=== PATIENT | male | born 1930 | race Caucasian/White ===

== ENCOUNTER 2017-07-06 15:17 | Inpatient (IN) | payer MEDICARE, OTHER ==
[2017-07-06 15:56] LABS: CHLORIDE,CL 104 mEq/L (98-106); SODIUM,NA 138 mEq/L (136-145)
[2017-07-06] MEDS ORDERED: Sodium Chloride 0.9% 10 ML Syringe FLUSH PRN (19:27)
[2017-07-06] MEDS ORDERED: Pantoprazole 40 MG Vial IVPUSH ONE (19:27)
[2017-07-06] MEDS ORDERED: Acetaminophen 325 MG Tab PO PRN (19:27)
[2017-07-06] MEDS ORDERED: Temazepam 15 MG Cap PO PRN (19:27)
[2017-07-06] MEDS: Sodium Chloride 0.9% 1,000 ML IV SCH (20:08)
[2017-07-06] MEDS: Levofloxacin/Dextrose 5%-Water 500 MG in Premix Bag 1 BAG IV SCH (20:09)
[2017-07-06] MEDS: Enoxaparin 40 MG/0.4 ML Syringe SUBCUT SCH (20:16)
[2017-07-06] MEDS: valACYclovir 500 MG Tab PO SCH (20:16)
[2017-07-07] MEDS: Gabapentin 100 MG Cap PO SCH (07:32)
[2017-07-07] MEDS: Aspirin 81 MG Tab.EC PO SCH (07:32)
[2017-07-07] MEDS: valACYclovir 500 MG Tab PO SCH ×2 (07:41→19:24)
[2017-07-07] MEDS: Sodium Chloride 0.9% 1,000 ML IV SCH ×2 (10:33→22:09)
--- NOTE | 2017-07-07 12:22 | PCM.PN ---
- General Info Date of Service: 07/07/17 Admission Dx/Problem (Free Text): Weakness UTI Functional Status: Reports: Pain Controlled, Tolerating Diet. Denies: Ambulating - Review of Systems General: Reports: Weakness, Fatigue, Malaise. Denies: Fever HEENT: Reports: No Symptoms Pulmonary: Denies: Shortness of Breath, Cough, Sputum Cardiovascular: Denies: Chest Pain, Edema, Lightheadedness Gastrointestinal: Denies: Abdominal Pain, Nausea, Vomiting Genitourinary: Reports: Frequency Musculoskeletal: Reports: No Symptoms Skin: Reports: No Symptoms Neurological: Reports: Weakness - Patient Data Vitals - Most Recent: Last Vital Signs Temp 97.2 F 07/07/17 04:00 Pulse 69 07/07/17 04:00 Resp 20 07/07/17 04:00 BP 139/59 L 07/07/17 04:00 Pulse Ox 96 07/07/17 04:00 Weight - Most Recent: 192 lb 1.6 oz I&O - Last 24 Hours: Intake & Output 07/06/17 07/07/17 07/07/17 22:59 06:59 14:59 Intake Total 1100 Output Total 400 800 250 Balance -400 300 -250 Lab Results Last 24 Hours: Laboratory Results - last 24 hr 07/06/17 07/06/17 07/06/17 Range/Units 15:24 15:25 15:25 WBC 8.4 (5.0-10.0) 10^3/uL RBC 4.49 L (4.50-6.00) 10^6/uL Hgb 13.6 L (14.0-18.0) g/dL Hct 41.2 (40.0-54.0) % MCV 91.8 (82.0-94.0) fL MCH 30.3 (27.0-32.0) pg MCHC 33.0 (33.0-38.0) g/dL RDW Coeff of Elvie 13.5 (11.0-15.0) % Plt Count 163 (150-400) 10^3/uL Neut % (Auto) 50.7 (35-85) % Lymph % (Auto) 26.6 (10-55) % [place] % (Auto) 15.7 (0-16) % Eos % (Auto) 6.4 H (0-5) % Baso % (Auto) 0.6 (0-3) % Neut # (Auto) 4.28 (1.80-7.00) 10^3/uL Lymph # (Auto) 2.24 (1.00-4.80) 10^3/uL [place] # (Auto) 1.32 H (0.00-0.80) 10^3/uL Eos # (Auto) 0.54 H (0.00-0.45) 10^3/uL Baso # (Auto) 0.05 10^3/uL Add Manual Diff Neutrophils % (Manual) (35-85) % Lymphocytes % (Manual) (21-55) % Monocytes % (Manual) (2-12) % Eosinophils % (Manual) (0-5) % Absolute Neutrophils (1.80-7.00) 10^3/uL Lymphocytes # (Manual) (1.00-4.80) 10^3/uL Monocytes # (Manual) (0.00-0.80) 10^3/uL Eosinophils # (Manual) (0.00-0.45) 10^3/uL Sodium 138 (136-145) mEq/L Potassium 4.2 (3.5-5.0) mEq/L Chloride 104 (98-106) mEq/L Carbon Dioxide 26 (21-32) mmol/L BUN 13 (7-18) mg/dL Creatinine 0.8 (0.7-1.3) mg/dL Est Cr Clr Drug Dosing TNP Estimated GFR (MDRD) > 60 (>=60) mL/min Glucose 114 H (75-99) mg/dL Calcium 8.2 L (8.4-10.1) mg/dL Total Bilirubin 0.4 (0.0-1.0) mg/dL AST 112 H (15-37) U/L ALT 11 L (12-78) U/L Alkaline Phosphatase 526 H (46-116) U/L C-Reactive Protein 4.0 H (0.2-0.8) mg/dL Total Protein 6.2 L (6.4-8.2) g/dL Albumin 2.5 L (3.4-5.0) g/dL Amylase 21 L (25-115) U/L Free T4 1.1 (0.8-1.6) ng/dL TSH, Ultra Sensitive 6.76 H (0.36-5.60) uIU/mL Urine Color (YELLOW) Urine Appearance (CLEAR) Urine pH (4.5-8.0) Ur Specific [place] (1.003-1.020) Urine Protein (NEGATIVE) mg/dL Urine Glucose (UA) (NEGATIVE) mg/dL Urine Ketones (NEGATIVE) mg/dL Urine Occult Blood (NEGATIVE) Urine Nitrite (NEGATIVE) Urine Bilirubin (NEGATIVE) Urine Urobilinogen (0.2-1.0) EU/dL Ur Leukocyte Esterase (NEGATIVE) Urine RBC (0-5) /HPF Urine WBC (0-5) /HPF Urine WBC Clumps (NOT SEEN) /HPF Ur Epithelial Cells (NOT SEEN) /HPF Urine Bacteria (NOT SEEN) /HPF 07/06/17 07/07/17 07/07/17 Range/Units 15:25 07:15 07:15 WBC 7.5 (5.0-10.0) 10^3/uL RBC 4.15 L (4.50-6.00) 10^6/uL Hgb 12.7 L (14.0-18.0) g/dL Hct 38.3 L (40.0-54.0) % MCV 92.3 (82.0-94.0) fL MCH 30.6 (27.0-32.0) pg MCHC 33.2 (33.0-38.0) g/dL RDW Coeff of Elvie 13.4 (11.0-15.0) % Plt Count 142 L (150-400) 10^3/uL Neut % (Auto) (35-85) % Lymph % (Auto) (10-55) % [place] % (Auto) (0-16) % Eos % (Auto) (0-5) % Baso % (Auto) (0-3) % Neut # (Auto) (1.80-7.00) 10^3/uL Lymph # (Auto) (1.00-4.80) 10^3/uL [place] # (Auto) (0.00-0.80) 10^3/uL Eos # (Auto) (0.00-0.45) 10^3/uL Baso # (Auto) 10^3/uL Add Manual Diff Yes Neutrophils % (Manual) 57 (35-85) % Lymphocytes % (Manual) 25 (21-55) % Monocytes % (Manual) 14 H (2-12) % Eosinophils % (Manual) 4 (0-5) % Absolute Neutrophils 4.28 (1.80-7.00) 10^3/uL Lymphocytes # (Manual) 1.88 (1.00-4.80) 10^3/uL Monocytes # (Manual) 1.05 H (0.00-0.80) 10^3/uL Eosinophils # (Manual) 0.30 (0.00-0.45) 10^3/uL Sodium (136-145) mEq/L Potassium (3.5-5.0) mEq/L Chloride (98-106) mEq/L Carbon Dioxide (21-32) mmol/L BUN (7-18) mg/dL Creatinine (0.7-1.3) mg/dL Est Cr Clr Drug Dosing Estimated GFR (MDRD) (>=60) mL/min Glucose (75-99) mg/dL Calcium (8.4-10.1) mg/dL Total Bilirubin (0.0-1.0) mg/dL AST (15-37) U/L ALT (12-78) U/L Alkaline Phosphatase (46-116) U/L C-Reactive Protein 7.1 H (0.2-0.8) mg/dL Total Protein (6.4-8.2) g/dL Albumin (3.4-5.0) g/dL Amylase (25-115) U/L Free T4 (0.8-1.6) ng/dL TSH, Ultra Sensitive (0.36-5.60) uIU/mL Urine Color Yellow (YELLOW) Urine Appearance Cloudy (CLEAR) Urine pH 6.0 (4.5-8.0) Ur Specific [place] 1.015 (1.003-1.020) Urine Protein 30 H (NEGATIVE) mg/dL Urine Glucose (UA) Negative (NEGATIVE) mg/dL Urine Ketones Negative (NEGATIVE) mg/dL Urine Occult Blood Moderate H (NEGATIVE) Urine Nitrite Negative (NEGATIVE) Urine Bilirubin Negative (NEGATIVE) Urine Urobilinogen 0.2 (0.2-1.0) EU/dL Ur Leukocyte Esterase Large H (NEGATIVE) Urine RBC 5-10 H (0-5) /HPF Urine WBC >100 H (0-5) /HPF Urine WBC Clumps Few H (NOT SEEN) /HPF Ur Epithelial Cells Few H (NOT SEEN) /HPF Urine Bacteria Moderate H (NOT SEEN) /HPF Alexis Results Last 24 Hours: Microbiology 07/06/17 16:25 Urine Culture - Preliminary Urine, Voided Gram Negative Rods Med Orders - Current: Current Medications Acetaminophen (Tylenol) 650 mg PO Q4H PRN PRN Reason: Pain (Mild 1-3)/fever Aspirin (Halfprin) 81 mg PO DAILY [facility] Last Admin: 07/07/17 07:32 Dose: 81 mg Enoxaparin Sodium (Lovenox) 40 mg SUBCUT Q24H [facility] Last Admin: 07/06/17 20:16 Dose: 40 mg Gabapentin (Neurontin) 100 mg PO DAILY [facility] Last Admin: 07/07/17 07:32 Dose: 100 mg Levofloxacin/Dextrose 500 mg/ (Premix) 100 mls @ 100 mls/hr IV Q24H [facility] Last Admin: 07/06/17 20:09 Dose: 100 mls/hr Sodium Chloride (Normal Saline) 1,000 mls @ 100 mls/hr IV ASDIRECTED [facility] Last Admin: 07/07/17 10:33 Dose: 100 mls/hr Non-Formulary Medication (Mometasone Furoate [Asmanex]) 1 puff INH BID [facility] Sodium Chloride (Saline Flush) 10 ml FLUSH ASDIRECTED PRN PRN Reason: Keep Vein Open Temazepam (Restoril) 15 mg PO BEDTIME PRN PRN Reason: Sleep Valacyclovir HCl (Valtrex) 1,000 mg PO BID [facility] Last Admin: 07/07/17 07:41 Dose: 1,000 mg Discontinued Medications Pantoprazole Sodium (Protonix Iv) 40 mg IVPUSH ONETIME ONE Stop: 07/06/17 19:28 Last Admin: 07/06/17 20:07 Dose: 40 mg - Exam General: Alert, Oriented HEENT: Mucous Membr. Moist/[place] Neck: Supple Lungs: Clear to Auscultation, Normal Respiratory Effort Cardiovascular: Regular Rate, Regular Rhythm GI/Abdominal Exam: Normal Bowel Sounds, Soft, Non-Tender Extremities: Normal Inspection, No Pedal Edema Skin: Warm, Dry Neurological: No New Focal Deficit - Problem List & Annotations (1) Acute UTI SNOMED Code(s): 954380128 Code(s): N39.0 - URINARY TRACT INFECTION, SITE NOT SPECIFIED Status: Acute Priority: High Current Visit: Yes (2) Weakness SNOMED Code(s): 44840856 Code(s): R53.1 - WEAKNESS Status: Acute Priority: High Current Visit: Yes - Problem List Review Problem List Initiated/Reviewed/Updated: Yes - My Orders Last 24 Hours: My Active Orders 07/08/17 05:11 BASIC METABOLIC PANEL,BMP [CHEM] AM C-REACTIVE PROTEIN [CHEM] AM CBC WITH AUTO DIFF [HEME] AM - Assessment Assessment:: Weakness UTI - Plan Plan:: Patient continues to complain of extreme weakness and fatigue. States has minimal activity intolerance. Has been on multiple meds for his prostate CA over the years, thought possibly his most recent med was causing the weakness but he states has been off of that now for 2 weeks and hasn't seen improvement. Does note frequency with urination and is positive for UTI so may also be contributing to his weakness. He denies any shortness of breath or chest pain. Does have decreased appetite. Afebrile. Labs show normal WBC of 7.5, hemoglobin of 12.7, CRP of 7.1. Will continue with IV antibiotics. PT to eval and treat. Routine cares. Reevalute discharge potential in am.
[2017-07-07] MEDS: Levofloxacin/Dextrose 5%-Water 500 MG in Premix Bag 1 BAG IV SCH (19:29)
[2017-07-07] MEDS: Enoxaparin 40 MG/0.4 ML Syringe SUBCUT SCH (20:38)
[2017-07-08] MEDS: valACYclovir 500 MG Tab PO SCH ×2 (07:46→19:52)
[2017-07-08] MEDS: Aspirin 81 MG Tab.EC PO SCH (07:47)
[2017-07-08] MEDS: Gabapentin 100 MG Cap PO SCH (07:47)
[2017-07-08 08:01] LABS: CHLORIDE,CL 102 mEq/L (98-106); SODIUM,NA 134 mEq/L (136-145)
[2017-07-08] MEDS: Sodium Chloride 0.9% 1,000 ML IV SCH ×2 (10:29→22:03)
--- NOTE | 2017-07-08 13:20 | PN ---
DATE: 07/08/2017 S: Mr. Falcon is doing well. Had a T-max yesterday of 100.3. Other than his complaints of fatigue, seems like he is doing better. His lab work shows his white count to be down. CRP is tracking up slightly and we will continue to monitor this. He really denies any other complaints. We did get a positive culture of E coli, which is sensitive to his fluoroquinolone. O: GENERAL: Today, he is pleasant and cooperative. Does not appear in any distress. HEENT: Grossly benign. NECK: Appears supple. Veins are flat. RESPIRATORY: His lung sounds are clear. CARDIAC: Tones are regular. I could appreciate no CVA or suprapubic pain to palpation. ASSESSMENT: 1. URINARY TRACT INFECTION. 2. WEAKNESS. 3. METASTATIC PROSTATE CARCINOMA. P: We will continue with IV antibiotics for now. Continue PT/OT for strengthening. Clinically, he looks stable and we will hopefully plan on home in the next few days. GAL/MAYELA /[id number]
[2017-07-08] MEDS: Levofloxacin/Dextrose 5%-Water 500 MG in Premix Bag 1 BAG IV SCH (19:51)
[2017-07-08] MEDS: Enoxaparin 40 MG/0.4 ML Syringe SUBCUT SCH (20:29)
--- NOTE | 2017-07-09 06:36 | PCM.PN ---
- General Info Date of Service: 07/09/17 Functional Status: Reports: Pain Controlled, Ambulating, Other (decreased apetite) - Review of Systems General: Reports: Weakness, Fatigue HEENT: Reports: No Symptoms Pulmonary: Reports: No Symptoms Cardiovascular: Reports: No Symptoms Gastrointestinal: Reports: No Symptoms Genitourinary: Reports: No Symptoms Musculoskeletal: Reports: No Symptoms Skin: Reports: No Symptoms Neurological: Reports: No Symptoms Psychiatric: Reports: No Symptoms - Patient Data Vitals - Most Recent: Last Vital Signs Temp 98.3 F 07/09/17 04:00 Pulse 64 07/09/17 04:00 Resp 20 07/09/17 04:00 BP 137/57 L 07/09/17 04:00 Pulse Ox 98 07/09/17 04:00 Weight - Most Recent: 196 lb 12.8 oz I&O - Last 24 Hours: Intake & Output 07/08/17 07/08/17 07/09/17 14:59 22:59 06:59 Intake Total 1000 1900 100 Output Total 425 900 750 Balance 575 1000 -650 Lab Results Last 24 Hours: Laboratory Results - last 24 hr 07/08/17 07/08/17 Range/Units 07:00 07:00 WBC 6.6 (5.0-10.0) 10^3/uL RBC 3.98 L (4.50-6.00) 10^6/uL Hgb 12.2 L (14.0-18.0) g/dL Hct 36.9 L (40.0-54.0) % MCV 92.7 (82.0-94.0) fL MCH 30.7 (27.0-32.0) pg MCHC 33.1 (33.0-38.0) g/dL RDW Coeff of Elvie 13.3 (11.0-15.0) % Plt Count 131 L (150-400) 10^3/uL Neut % (Auto) 48.7 (35-85) % Lymph % (Auto) 28.1 (10-55) % [place] % (Auto) 19.2 H (0-16) % Eos % (Auto) 3.5 (0-5) % Baso % (Auto) 0.5 (0-3) % Neut # (Auto) 3.22 (1.80-7.00) 10^3/uL Lymph # (Auto) 1.86 (1.00-4.80) 10^3/uL [place] # (Auto) 1.27 H (0.00-0.80) 10^3/uL Eos # (Auto) 0.23 (0.00-0.45) 10^3/uL Baso # (Auto) 0.03 10^3/uL Sodium 134 L (136-145) mEq/L Potassium 3.9 (3.5-5.0) mEq/L Chloride 102 (98-106) mEq/L Carbon Dioxide 24 (21-32) mmol/L BUN 10 (7-18) mg/dL Creatinine 0.7 (0.7-1.3) mg/dL Est Cr Clr Drug Dosing 84.02 mL/min Estimated GFR (MDRD) > 60 (>=60) mL/min Glucose 104 H (75-99) mg/dL Calcium 7.2 L (8.4-10.1) mg/dL C-Reactive Protein 11.8 H (0.2-0.8) mg/dL Alexis Results Last 24 Hours: Microbiology 07/06/17 16:25 Urine Culture - Final Urine, Voided Escherichia Coli Med Orders - Current: Current Medications Acetaminophen (Tylenol) 650 mg PO Q4H PRN PRN Reason: Pain (Mild 1-3)/fever Last Admin: 07/08/17 00:21 Dose: 650 mg Aspirin (Halfprin) 81 mg PO DAILY [facility] Last Admin: 07/08/17 07:47 Dose: 81 mg Enoxaparin Sodium (Lovenox) 40 mg SUBCUT Q24H [facility] Last Admin: 07/08/17 20:29 Dose: 40 mg Gabapentin (Neurontin) 100 mg PO DAILY [facility] Last Admin: 07/08/17 07:47 Dose: 100 mg Levofloxacin/Dextrose 500 mg/ (Premix) 100 mls @ 100 mls/hr IV Q24H [facility] Last Admin: 07/08/17 19:51 Dose: 100 mls/hr Non-Formulary Medication (Mometasone Furoate [Asmanex]) 1 puff INH BID [facility] Sodium Chloride (Saline Flush) 10 ml FLUSH ASDIRECTED PRN PRN Reason: Keep Vein Open Temazepam (Restoril) 15 mg PO BEDTIME PRN PRN Reason: Sleep Valacyclovir HCl (Valtrex) 1,000 mg PO BID [facility] Last Admin: 07/08/17 19:52 Dose: 1,000 mg Discontinued Medications Sodium Chloride (Normal Saline) 1,000 mls @ 100 mls/hr IV ASDIRECTED [facility] Last Admin: 07/08/17 22:03 Dose: 100 mls/hr Pantoprazole Sodium (Protonix Iv) 40 mg IVPUSH ONETIME ONE Stop: 07/06/17 19:28 Last Admin: 07/06/17 20:07 Dose: 40 mg - Exam General: Alert, Oriented, Cooperative, No Acute Distress Neck: Supple, Trachea Midline, No JVD Lungs: Clear to Auscultation, Normal Respiratory Effort Cardiovascular: Regular Rate, Regular Rhythm, No Murmurs GI/Abdominal Exam: Soft, Non-Tender Back Exam: Normal Inspection, Full Range of Motion Extremities: Normal Inspection, No Pedal Edema, Normal Capillary Refill Peripheral Pulses: 2+: Radial (L), Radial (R), Posterior Tibial (L), Posterior Tibial (R) Skin: Warm, Dry, Intact Neurological: No New Focal Deficit Psy/Mental Status: Alert, Normal Affect, Normal Mood - Problem List Review Problem List Initiated/Reviewed/Updated: Yes - My Orders Last 24 Hours: My Active Orders 07/09/17 05:00 BASIC METABOLIC PANEL,BMP [CHEM] DAILY CBC WITH AUTO DIFF [HEME] DAILY CRP [C-REACTIVE PROTEIN] [CHEM] DAILY 07/10/17 05:00 BASIC METABOLIC PANEL,BMP [CHEM] DAILY CBC WITH AUTO DIFF [HEME] DAILY CRP [C-REACTIVE PROTEIN] [CHEM] DAILY 07/11/17 05:00 BASIC METABOLIC PANEL,BMP [CHEM] DAILY CBC WITH AUTO DIFF [HEME] DAILY CRP [C-REACTIVE PROTEIN] [CHEM] DAILY - Assessment Assessment:: Weakness UTI - Plan Plan:: 07/08/17 Patient continues to complain of extreme weakness and fatigue. States has minimal activity intolerance. Has been on multiple meds for his prostate CA over the years, thought possibly his most recent med was causing the weakness but he states has been off of that now for 2 weeks and hasn't seen improvement. Does note frequency with urination and is positive for UTI so may also be contributing to his weakness. He denies any shortness of breath or chest pain. Does have decreased appetite. Afebrile. Labs show normal WBC of 7.5, hemoglobin of 12.7, CRP of 7.1. Will continue with IV antibiotics. PT to eval and treat. Routine cares. Reevalute discharge potential in am. 07/09/17 Patient continues to complain of extreme weakness and fatigue. States has minimal activity intolerance. Patient and nurses have reported that he has no appetite. The patient denies pain. Patient is currently on susceptible abx treatment for UTI. Labs have been ordered today. Will continue admit and IV abx , will evaluate tomorrow. Patient has had a 2lb weight gain in 24 hours, will stop his fluids.
[2017-07-09 07:44] LABS: CHLORIDE,CL 104 mEq/L (98-106); SODIUM,NA 135 mEq/L (136-145)
[2017-07-09] MEDS: Gabapentin 100 MG Cap PO SCH (08:12)
[2017-07-09] MEDS: valACYclovir 500 MG Tab PO SCH ×2 (08:13→20:07)
[2017-07-09] MEDS: Aspirin 81 MG Tab.EC PO SCH (08:13)
[2017-07-09] MEDS: Levofloxacin/Dextrose 5%-Water 500 MG in Premix Bag 1 BAG IV SCH (20:11)
[2017-07-09] MEDS: Enoxaparin 40 MG/0.4 ML Syringe SUBCUT SCH (21:11)
[2017-07-10 07:52] LABS: CHLORIDE,CL 103 mEq/L (98-106); SODIUM,NA 135 mEq/L (136-145)
[2017-07-10] MEDS: Aspirin 81 MG Tab.EC PO SCH (08:06)
[2017-07-10] MEDS: Gabapentin 100 MG Cap PO SCH (08:06)
[2017-07-10] MEDS: valACYclovir 500 MG Tab PO SCH (08:06)
[2017-07-10 08:18] VITALS: BP 144/60
--- NOTE | 2017-07-10 10:10 | PCM.DCSUM1 ---
Discharge Summary - Hospital Course HPI Initial Comments: This patient is an 86 year old male that presented with generalized weakness and decreased appetite. Patient was admitted with UTI as well. Patient later yesterday and today has been up ambulating and doing great. Patient today reports that he feels much better and is ready to go home. Patient labs today have improved. His CRP yesterday was 12.7, today is 11.2. The CBC and CMP are unremarkable. Patient is alert and oriented and no distress. I will discharge this patient today. Stable. - Discharge Data Discharge Date: 07/10/17 Discharge Disposition: Home, Self-Care 01 Condition: Good - Patient Summary/Data Consults: Consultations 07/06/17 19:27 PT Evaluation and Treatment [CONS] Routine - Patient Instructions Diet: Usual Diet as Tolerated Activity: As Tolerated Showering/Bathing: September Shower Notify Provider of: Fever, Nausea and/or Vomiting - Discharge Plan Prescriptions/Med Rec: Levofloxacin/Dextrose 5%-Water [Levaquin in D5W 500 MG/100 ML] 500 mg PO Q24H 4 Days #5 bag Home Medications: Home Meds Aspirin 81 mg PO DAILY 07/06/17 [History] Esomeprazole [NexIUM] 40 mg PO DAILY 07/06/17 [History] Gabapentin [Neurontin] 100 mg PO DAILY 07/06/17 [History] Mometasone Furoate [Asmanex] 1 puff INH BID 07/06/17 [History] valACYclovir HCl [Valacyclovir] 1,000 mg PO BID 07/06/17 [History] Albuterol [Proventil HFA] 1 puff INH ASDIRECTED PRN 07/09/17 [History] Fluticasone Propionate [Flonase Allergy Relief] 1 spray SHARA ASDIRECTED PRN 07/09 [History] Levofloxacin/Dextrose 5%-Water [Levaquin in D5W 500 MG/100 ML] 500 mg PO Q24H 4 Days #5 bag 07/10/17 [Rx] Patient Handouts: Urinary Tract Infection, Adult, Weakness - Discharge Summary/Plan Comment DC Time >30 min.: No Discharge Summary/Plan Comment: Followup with your primary care provider this week Return to the ER for worsening of condition or any emergent concerns Increase fluids Levaquin 500mg 1 pill once a day #4 no refill - General Info Date of Service: 07/10/17 Functional Status: Reports: Pain Controlled, Tolerating Diet, Ambulating - Review of Systems General: Reports: No Symptoms HEENT: Reports: No Symptoms Pulmonary: Reports: No Symptoms Cardiovascular: Reports: No Symptoms Gastrointestinal: Reports: No Symptoms Genitourinary: Reports: No Symptoms Musculoskeletal: Reports: No Symptoms Skin: Reports: No Symptoms Neurological: Reports: No Symptoms Psychiatric: Reports: No Symptoms - Patient Data Vitals - Most Recent: Last Vital Signs Temp 96.7 F 07/10/17 08:00 Pulse 65 07/10/17 08:00 Resp 14 07/10/17 08:00 BP 144/60 H 07/10/17 08:00 Pulse Ox 98 07/10/17 08:00 Weight - Most Recent: 197 lb I&O - Last 24 hours: Intake & Output 07/09/17 07/10/17 07/10/17 22:59 06:59 14:59 Intake Total 1415 200 Output Total 1425 700 550 Balance -10 500 -550 Lab Results - Last 24 hrs: Laboratory Results - last 24 hr 07/10/17 07/10/17 Range/Units 05:00 05:00 WBC 6.5 (5.0-10.0) 10^3/uL RBC 3.90 L (4.50-6.00) 10^6/uL Hgb 11.8 L (14.0-18.0) g/dL Hct 35.2 L (40.0-54.0) % MCV 90.3 (82.0-94.0) fL MCH 30.3 (27.0-32.0) pg MCHC 33.5 (33.0-38.0) g/dL RDW Coeff of Elvie 12.9 (11.0-15.0) % Plt Count 157 (150-400) 10^3/uL Neut % (Auto) 49.1 (35-85) % Lymph % (Auto) 31.0 (10-55) % [place] % (Auto) 14.4 (0-16) % Eos % (Auto) 4.6 (0-5) % Baso % (Auto) 0.9 (0-3) % Neut # (Auto) 3.20 (1.80-7.00) 10^3/uL Lymph # (Auto) 2.02 (1.00-4.80) 10^3/uL [place] # (Auto) 0.94 H (0.00-0.80) 10^3/uL Eos # (Auto) 0.30 (0.00-0.45) 10^3/uL Baso # (Auto) 0.06 10^3/uL Sodium 135 L (136-145) mEq/L Potassium 4.0 (3.5-5.0) mEq/L Chloride 103 (98-106) mEq/L Carbon Dioxide 23 (21-32) mmol/L BUN 6 L (7-18) mg/dL Creatinine 0.6 L (0.7-1.3) mg/dL Est Cr Clr Drug Dosing 98.03 mL/min Estimated GFR (MDRD) > 60 (>=60) mL/min Glucose 99 (75-99) mg/dL Calcium 7.8 L (8.4-10.1) mg/dL C-Reactive Protein 11.2 H (0.2-0.8) mg/dL Med Orders - Current: Current Medications Acetaminophen (Tylenol) 650 mg PO Q4H PRN PRN Reason: Pain (Mild 1-3)/fever Last Admin: 07/08/17 00:21 Dose: 650 mg Aspirin (Halfprin) 81 mg PO DAILY [facility] Last Admin: 07/10/17 08:06 Dose: 81 mg Enoxaparin Sodium (Lovenox) 40 mg SUBCUT Q24H [facility] Last Admin: 07/09/17 21:11 Dose: 40 mg Gabapentin (Neurontin) 100 mg PO DAILY [facility] Last Admin: 07/10/17 08:06 Dose: 100 mg Levofloxacin/Dextrose 500 mg/ (Premix) 100 mls @ 100 mls/hr IV Q24H [facility] Last Admin: 07/09/17 20:11 Dose: 100 mls/hr Mometasone Furoate [ (Asmanex] 100 Mcg/Act) 0 puff INH BID [facility] Sodium Chloride (Saline Flush) 10 ml FLUSH ASDIRECTED PRN PRN Reason: Keep Vein Open Temazepam (Restoril) 15 mg PO BEDTIME PRN PRN Reason: Sleep Valacyclovir HCl (Valtrex) 1,000 mg PO BID [facility] Last Admin: 07/10/17 08:06 Dose: 1,000 mg Discontinued Medications Sodium Chloride (Normal Saline) 1,000 mls @ 100 mls/hr IV ASDIRECTED [facility] Last Admin: 07/08/17 22:03 Dose: 100 mls/hr Pantoprazole Sodium (Protonix Iv) 40 mg IVPUSH ONETIME ONE Stop: 07/06/17 19:28 Last Admin: 07/06/17 20:07 Dose: 40 mg - Exam General: Reports: Alert, Oriented, Cooperative, No Acute Distress Lungs: Reports: Clear to Auscultation, Normal Respiratory Effort Cardiovascular: Reports: Regular Rate, Regular Rhythm, No Murmurs (Male) Exam: Deferred Rectal (Males) Exam: Deferred Back Exam: Reports: Normal Inspection, Full Range of Motion Extremities: Normal Inspection, Normal Range of Motion, Non-Tender, No Pedal Edema, Normal Capillary Refill Skin: Reports: Warm, Dry, Intact Psy/Mental Status: Reports: Alert, Normal Affect, Normal Mood *Q Meaningful Use (DIS) - VTE *Q VTE Criteria *Q: - Stroke *Q Stroke Criteria *Q: - AMI *Q AMI Criteria *Q:
[2017-07-10] MEDS ORDERED: Levofloxacin 500 MG Tab PO ONE (10:15)
[2017-07-10] MEDS: MOMETASONE FUROATE INH SCH ×4 (15:46→15:49)
== END 2017-07-10 11:20 | disposition home or self-care (01) | DRG 690 ==
LOC: CC.FCMC 15:17 → CC.MS 15:17
PROVIDERS: ADMIT Physician Assistant Medical; ATTEND Family Medicine
DX: N39.0 Urinary tract infection, site not specified (principal); C79.9 Secondary malignant neoplasm of unspecified site; C61 Malignant neoplasm of prostate; R53.1 Weakness; R63.4 Abnormal weight loss; Z88.8 Allergy status to other drugs, medicaments and biological substances; Z79.82 Long term (current) use of aspirin; Z79.899 Other long term (current) drug therapy
CPT/HCPCS: 36415; 71046; 80048; 80053; 81001; 82150; 84439; 84443; 85025; 86140; 87086; 87088; 87186; 97110-GP; 97161-GP; A9270-GY; C9113; J1650; J1956; J7030